=== PATIENT | female | born 1990 | race Caucasian/White ===

== ENCOUNTER → 2017-12-28 | Outpatient (CLI) | payer OTHER ==
[~2017-12-28] MED LIST: FEXO1TAB63 PO; INSU100V24 SQ; NORE-22 PO; NORE-24 PO
== END ==
LOC: LAB 13:04
PROVIDERS: ATTEND Emergency Medicine
DX: D75.89 Other specified diseases of blood and blood-forming organs (principal)
CPT/HCPCS: 36415; 82607; 82746

== ENCOUNTER → 2018-01-02 | Outpatient (REF) | payer OTHER | LOC: ZZSENDIN 17:13 | PROVIDERS: ATTEND Emergency Medicine | DX: E53.8 Deficiency of other specified B group vitamins (principal) | CPT/HCPCS: 83090; 83921 ==

== ENCOUNTER → 2018-05-01 | Outpatient (CLI) | payer OTHER ==
[~2018-05-01] MED LIST changes: +AMOX-559 PO; +FLUT16SP19 NS
== END ==
LOC: LAB 08:02
PROVIDERS: ATTEND Emergency Medicine
DX: G62.9 Polyneuropathy, unspecified (principal)
CPT/HCPCS: 36415; 82607

== ENCOUNTER → 2019-01-23 | Outpatient (CLI) | payer OTHER ==
[~2019-01-23] MED LIST changes: +FLU60VIA41 IM; +PNEI IM
[2019-01-23 07:35] LABS: PLATELET COUNT, AUTOMATED 296 K/uL (150-450)
[2019-01-23 08:47] LABS: LDL CHOLESTEROL 85 mg/dl
== END ==
LOC: LAB 07:18
PROVIDERS: ATTEND Emergency Medicine
DX: E11.9 Type 2 diabetes mellitus without complications (principal); E53.8 Deficiency of other specified B group vitamins
CPT/HCPCS: 36415; 82040; 82247; 82310; 82374; 82435; 82465; 82565; 82607; 82947; 83718; 84075; 84132; 84155; 84295; 84450; 84460; 84478; 84520; 85025